=== PATIENT | male | born 1965 | race Caucasian/White ===

== ENCOUNTER 2016-07-05 22:27 | Emergency (ER) | payer BC, OTHER ==
[2016-07-05 23:18] LABS: URINE BILIRUBIN NEGATIVE (NEGATIVE); URINE BLOOD TRACE (NEGATIVE); URINE GLUCOSE (UA) 2+ (NEGATIVE); URINE LEUKOCYTE ESTERASE NEGATIVE (NEGATIVE); URINE NITRITE NEGATIVE (NEGATIVE); URINE PROTEIN TRACE (NEGATIVE); URINE UROBILINOGEN NORMAL (0-1 mg/dl)
[2016-07-05 23:27] LABS: URINE APPEARANCE CLEAR; URINE COLOR YELLOW
[2016-07-05 23:30] LABS: URINE BACTERIA 0; URINE EPITHELIAL CELLS 0-1 /hpf; URINE MUCUS 1+; URINE RBC 0-2 /hpf; URINE WBC 0-2 /hpf
[2016-07-06 00:25] LABS: ABSOLUTE NEUTROPHIL COUNT 2.5 K/mm3 (1.8-7.7); BASO % 0.6 % (0.2-1.0); EOS # 0.2 (0.0-0.5); EOS % 2.8 % (0.9-2.9); HEMATOCRIT 44.1 % (32.0-52.0); HEMOGLOBIN 14.8 gm/l (14.0-18.0); IMM NEUT% 0.2 % (0-1); LYMPH # 2.3 (1.0-4.8); LYMPH % 41.3 % (15-45); MEAN CELL VOLUME 90.4 fl (80.0-94.0); MEAN CORPUSCULAR HEMOGLOBIN 30.3 pg (27.0-31.0); MEAN CORPUSCULAR HGB CONC 33.6 g/dl (33.0-37.0); MEAN PLATELET VOLUME 10.5 fl (7.4-10.4); MONO # 0.5 (0.0-0.8); MONO % 8.8 % (4-12); NEUT % 46.3 % (43-75); PLATELET COUNT 184 K/mm3 (130-400); RED CELL DISTRIBUTION WIDTH 13.2 % (11.5-14.5)
[2016-07-06 00:35] LABS: ALB/GLOB RATIO 1.3 (>1.0); CALCIUM 9.1 mg/dL (8.6-10.3)
--- NOTE | 2016-07-06 07:50 | CT ---
Examination: Noncontrast CT scans of the Abdomen and Pelvis Clinical indication: Right flank pain Comparison:None Technique: Multidetector CT scanner was utilized. No oral or intravenous contrast was administered. Axial images were acquired from just above the domes of the diaphragm to the iliac crest. A CT scan of the pelvis was carried out from the iliac crest to the initial tuberosities. Sagittal, axial and coronal stacked 5 mm images were reviewed. Findings: Abdomen CT (noncontrast): The lung bases are clear and are without mass or pleural effusion. The liver exhibits diminished attenuation with fatty infiltration. There is relative sparing adjacent to gallbladder fossa. Gallbladder is contracted. There is no evidence of biliary obstruction. The spleen size and attenuation are within normal limits. The pancreas is normal in size and contours. No inflammatory stranding is identified. The pancreatic duct is unremarkable. The adrenals are unremarkable. The kidneys are without mass or hydronephrosis. No nephrolithiasis is identified. Abdominal aorta exhibits no aneurysmal dilatation. Atherosclerotic changes are noted. There is no adjacent adenopathy. The stomach is unremarkable. The visualized segments of small and large bowel are within normal limits. The osseous structures exhibit no displaced fracture. No lytic or blastic lesions are identified. Pelvic CT findings (noncontrast): The distal ureters and bladder are unremarkable. The prostate is normal in size. No adenopathy is identified. Atherosclerotic plaquing involves iliac vessels. There is no aneurysmal dilatation. There is diverticulosis of the colon without evidence of acute epididymitis. The appendix is unremarkable. Spondylosis changes lumbar spine are noted. The overlying soft tissues are unremarkable. IMPRESSION: 1. No evidence of acute inflammatory obstructive process involving the abdomen and pelvis. 2. Normal kidneys and collecting system. 3. Normal appendix. 4. Diverticulosis without evidence of acute epiglottitis. 5. Atherosclerosis. 6. Fatty infiltration liver. 7. Spondylosis changes lumbar spine. Findings were communicated by [facility] to the emergency department at: 1:21 AM 07/06/2016
== END 2016-07-06 01:34 | disposition home or self-care (01) ==
LOC: ED 22:27
DX: S39.011A Strain of muscle, fascia and tendon of abdomen, initial encounter (principal); E11.9 Type 2 diabetes mellitus without complications; I10 Essential (primary) hypertension; X58.XXXA Exposure to other specified factors, initial encounter; Z86.19 Personal history of other infectious and parasitic diseases; Z88.0 Allergy status to penicillin